=== PATIENT | female | born 1975 | race African-American/Black ===

== ENCOUNTER 2021-03-14 14:22 | Inpatient (IN) ==
[2021-03-14] MEDS ORDERED: methylPREDNISolone SOD SUC 125 MG/2 ML VIAL IV STA (14:53)
[2021-03-14] MEDS ORDERED: ALBUTEROL NEB SOLN 5 MG/ML 20 ML/BOTTLE CONT NEB STA (14:53)
[2021-03-14 16:43] LABS: Alanine Aminotransferase 19 U/L (13-56); Albumin 3.7 G/DL (3.4-5.0); Alkaline Phosphatase 110 U/L (45-117); Aspartate Amino Transferase 16 U/L (0-37); Bilirubin,Total < 0.39 MG/DL (0.20-1.00); Blood Urea Nitrogen 5 MG/DL (7-18); Calcium 8.8 MG/DL (8.5-10.1); Carbon Dioxide 26 MMOL/L (21-32); Estimated Glom Filtration Rate 135 ML/MIN; Ferritin 39.5 ng/mL (8-252); Glucose 103 MG/DL (74-106); Osmolality,Calculated 275.4 MOS/KG (273-304); Potassium 3.8 MMOL/L (3.5-5.1); Sodium 140 MMOL/L (136-145)
[2021-03-14 16:47] LABS: PT Patient Result 10.9 SECS (10.5-12.0)
[2021-03-14 16:48] LABS: Basophils % 0.3 % (0.0-0.8); Eosinophils # 0.2 10*3/uL (0.0-0.87); Eosinophils % 1.4 % (0.00-10.9); Hematocrit 46.2 VOL% (35.7-47.0); Hemoglobin 14.5 GM/DL (12.0-16.0); Immature Granulocytes % 0.4 %; Immature Granulocytes Absolute 0.06 #; Lymphocytes # 2.5 10*3/uL (1.4-4.0); Lymphocytes % 18.1 % (21.3-54.2); Mean Corpuscular HGB Conc 31.4 GM/DL (32-36); Mean Corpuscular Volume 90.6 FL (87-102); Mean Platelet Volume 9.6 FL (9.6-12.0); Monocytes % 5.6 % (1.7-12.7); Neutrophils % 74.2 % (38.7-73.9); Platelet Count 307 T/CUMM (130-400); Red Cell Distribution Width 13.5 % (9.3-17.3); White Blood Count 13.6 T/CUMM (4-12)
[2021-03-14] MEDS ORDERED: DEXTROSE 50% 25 GM/50 ML VIAL IV PRN ×2 (17:17→18:04)
[2021-03-14] MEDS ORDERED: GLUCAGON 1 MG VIAL IM PRN ×2 (17:17→18:04)
[2021-03-14] MEDS ORDERED: LEVOFLOXACIN INJ 750 MG/150 ML PREMIX IV STA (17:20)
[2021-03-14] MEDS ORDERED: ALBUTEROL/IPRATROPIUM 3 ML NEB RESP TX STA (17:20)
[2021-03-14] MEDS ORDERED: ONDANSETRON 4 MG/2 ML VIAL IV PRN (18:04)
[2021-03-14] MEDS ORDERED: NICOTINE 21 MG/24 HR PATCH TRANSDERM PRN (18:04)
[2021-03-14] MEDS: ENOXAPARIN 40 MG/0.4 ML SYRINGE SUBCUT SCH (18:30)
[2021-03-14] MEDS: ALBUTEROL/IPRATROPIUM 3 ML NEB RESP TX SCH (19:40)
[2021-03-14] MEDS: methylPREDNISolone SOD SUC 40 MG/1 ML VIAL IV SCH (21:26)
[2021-03-14] MEDS: INSULIN LISPRO 100 UNIT/ML SUBCUT SCH (22:36)
[2021-03-15] MEDS: ALBUTEROL/IPRATROPIUM 3 ML NEB RESP TX SCH ×4 (00:33→19:30)
[2021-03-15] MEDS: methylPREDNISolone SOD SUC 40 MG/1 ML VIAL IV SCH ×3 (04:58→21:51)
[2021-03-15 06:34] LABS: Basophils % 0.1 % (0.0-0.8); Hematocrit 41.8 VOL% (35.7-47.0); Hemoglobin 13.3 GM/DL (12.0-16.0); Immature Granulocytes % 0.7 %; Immature Granulocytes Absolute 0.11 #; Mean Corpuscular HGB Conc 31.8 GM/DL (32-36); Mean Corpuscular Volume 89.9 FL (87-102); Mean Platelet Volume 9.8 FL (9.6-12.0); Monocytes % 1.5 % (1.7-12.7); Neutrophils % 91.7 % (38.7-73.9); Platelet Count 335 T/CUMM (130-400); Red Blood Count 4.65 MC/CUMM (3.8-5.5); Red Cell Distribution Width 13.4 % (9.3-17.3); White Blood Count 16.2 T/CUMM (4-12)
[2021-03-15 06:56] LABS: Lymphocytes 11 % (20-55); Platelet Estimate Adequate; Segmented Neutrophils 87 % (50-85); Total Cells Counted 100
[2021-03-15 07:15] LABS: Calcium 9.1 MG/DL (8.5-10.1); Osmolality,Calculated 283.8 MOS/KG (273-304); Potassium 4.2 MMOL/L (3.5-5.1); Risk Ratio 4.34; Thyroid Stimulating Hormone 0.727 uIU/ml (0.358-3.74); VLDL Cholesterol 22.4 MG/DL
[2021-03-15] MEDS: INSULIN LISPRO 100 UNIT/ML SUBCUT SCH ×4 (08:38→21:50)
[2021-03-15] MEDS: SODIUM CHLORIDE 0.9% 1,000 ML IV SCH (10:33)
[2021-03-15] MEDS: AZITHROMYCIN INJ 500 MG in SODIUM CHLORIDE 0.9% 250 ML IV SCH (10:34)
[2021-03-15] MEDS: ACETAMINOPHEN 325 MG TABLET PO PRN (16:18)
[2021-03-15] MEDS: ENOXAPARIN 40 MG/0.4 ML SYRINGE SUBCUT SCH (21:51)
[2021-03-16] MEDS: ALBUTEROL/IPRATROPIUM 3 ML NEB RESP TX SCH ×4 (00:59→20:29)
[2021-03-16] MEDS ORDERED: EPINEPHrine 1 MG/ML VIAL ONE (01:15)
[2021-03-16 05:17] LABS: Basophils % 0.1 % (0.0-0.8); Hematocrit 40.4 VOL% (35.7-47.0); Hemoglobin 12.7 GM/DL (12.0-16.0); Immature Granulocytes % 2.4 %; Immature Granulocytes Absolute 0.71 #; Lymphocytes # 1.7 10*3/uL (1.4-4.0); Lymphocytes % 5.6 % (21.3-54.2); Mean Corpuscular HGB Conc 31.4 GM/DL (32-36); Mean Corpuscular Volume 90.4 FL (87-102); Mean Platelet Volume 9.5 FL (9.6-12.0); Monocytes % 2.7 % (1.7-12.7); Neutrophils % 89.2 % (38.7-73.9); Platelet Count 333 T/CUMM (130-400); Red Blood Count 4.47 MC/CUMM (3.8-5.5); Red Cell Distribution Width 13.7 % (9.3-17.3); White Blood Count 29.5 T/CUMM (4-12)
[2021-03-16] MEDS: methylPREDNISolone SOD SUC 40 MG/1 ML VIAL IV SCH ×3 (05:19→21:22)
[2021-03-16 05:40] LABS: Calcium 8.8 MG/DL (8.5-10.1); Osmolality,Calculated 293.4 MOS/KG (273-304); Potassium 4.4 MMOL/L (3.5-5.1)
[2021-03-16 05:42] LABS: Ferritin 46.2 ng/mL (8-252)
[2021-03-16 05:56] LABS: Hypochromasia 1+; Lymphocytes 11 % (20-55); Microcytosis 1+; Polychromasia Slight; Segmented Neutrophils 87 % (50-85); Total Cells Counted 100
[2021-03-16 05:57] LABS: Platelet Estimate Normal
[2021-03-16] MEDS: INSULIN LISPRO 100 UNIT/ML SUBCUT SCH ×4 (08:04→21:30)
[2021-03-16] MEDS: AZITHROMYCIN INJ 500 MG in SODIUM CHLORIDE 0.9% 250 ML IV SCH (08:05)
[2021-03-16] MEDS: hydrALAZINE 20 MG/1 ML VIAL IV PRN ×2 (10:06→21:22)
[2021-03-16] MEDS: metFORMIN 500 MG TABLET PO SCH ×2 (17:40→21:21)
[2021-03-16] MEDS: ROSUVASTATIN 10 MG TABLET PO SCH (17:40)
[2021-03-16] MEDS: LOSARTAN 50 MG TABLET PO SCH (17:40)
[2021-03-16] MEDS: BENZONATATE 100 MG CAPSULE PO PRN (19:43)
[2021-03-16] MEDS: ENOXAPARIN 40 MG/0.4 ML SYRINGE SUBCUT SCH (21:23)
[2021-03-16] MEDS: SODIUM CHLORIDE 0.9% 1,000 ML IV SCH ×2 (22:50→22:51)
[2021-03-17] MEDS: SODIUM CHLORIDE 0.9% 1,000 ML IV SCH ×2 (02:53→20:13)
[2021-03-17] MEDS: methylPREDNISolone SOD SUC 40 MG/1 ML VIAL IV SCH ×3 (04:56→21:53)
[2021-03-17] MEDS: ALBUTEROL/IPRATROPIUM 3 ML NEB RESP TX SCH ×4 (04:57→19:10)
[2021-03-17] MEDS: AZITHROMYCIN INJ 500 MG in SODIUM CHLORIDE 0.9% 250 ML IV SCH (09:15)
[2021-03-17] MEDS: BENZONATATE 100 MG CAPSULE PO PRN (09:16)
[2021-03-17] MEDS: ROSUVASTATIN 10 MG TABLET PO SCH (09:16)
[2021-03-17] MEDS: LOSARTAN 50 MG TABLET PO SCH (09:16)
[2021-03-17] MEDS: metFORMIN 500 MG TABLET PO SCH ×2 (09:16→21:52)
[2021-03-17] MEDS: INSULIN LISPRO 100 UNIT/ML SUBCUT SCH ×4 (09:16→21:53)
[2021-03-17 09:23] LABS: Basophils # 0.1 10*3/uL (0.0-0.2); Basophils % 0.2 % (0.0-0.8); Hematocrit 41.6 VOL% (35.7-47.0); Hemoglobin 13.1 GM/DL (12.0-16.0); Immature Granulocytes % 4.9 %; Immature Granulocytes Absolute 1.29 #; Lymphocytes # 2.1 10*3/uL (1.4-4.0); Lymphocytes % 7.8 % (21.3-54.2); Mean Corpuscular HGB Conc 31.5 GM/DL (32-36); Mean Corpuscular Volume 89.8 FL (87-102); Mean Platelet Volume 9.5 FL (9.6-12.0); Monocytes % 1.9 % (1.7-12.7); Neutrophils % 85.2 % (38.7-73.9); Platelet Count 307 T/CUMM (130-400); Red Blood Count 4.63 MC/CUMM (3.8-5.5); Red Cell Distribution Width 13.7 % (9.3-17.3); White Blood Count 26.4 T/CUMM (4-12)
[2021-03-17 09:54] LABS: Band Neutrophils 1 % (0-10); Lymphocytes 5 % (20-55); Segmented Neutrophils 91 % (50-85); Total Cells Counted 100
[2021-03-17 09:55] LABS: Hypochromasia 1+; Microcytosis 1+; Platelet Estimate Normal
[2021-03-17] MEDS: hydrALAZINE 20 MG/1 ML VIAL IV PRN ×2 (11:40→17:22)
[2021-03-17] MEDS: ACETAMINOPHEN 325 MG TABLET PO PRN (19:12)
[2021-03-17] MEDS: ENOXAPARIN 40 MG/0.4 ML SYRINGE SUBCUT SCH (21:53)
[2021-03-18] MEDS: SODIUM CHLORIDE 0.9% 1,000 ML IV SCH (00:20)
[2021-03-18] MEDS: ALBUTEROL/IPRATROPIUM 3 ML NEB RESP TX SCH ×2 (02:40→07:30)
[2021-03-18] MEDS: methylPREDNISolone SOD SUC 40 MG/1 ML VIAL IV SCH (05:01)
[2021-03-18] MEDS: hydrALAZINE 20 MG/1 ML VIAL IV PRN ×2 (05:46→11:11)
[2021-03-18] MEDS ORDERED: predniSONE 20 MG TABLET PO SCH (09:00)
[2021-03-18] MEDS: LOSARTAN 50 MG TABLET PO SCH (09:41)
[2021-03-18] MEDS: metFORMIN 500 MG TABLET PO SCH (09:41)
[2021-03-18] MEDS: ROSUVASTATIN 10 MG TABLET PO SCH (09:41)
[2021-03-18] MEDS: INSULIN LISPRO 100 UNIT/ML SUBCUT SCH ×2 (09:42→12:26)
[2021-03-18] MEDS: AZITHROMYCIN INJ 500 MG in SODIUM CHLORIDE 0.9% 250 ML IV SCH (09:45)
[2021-03-18 11:50] VITALS: BP 180/97
== END 2021-03-18 12:45 | disposition designated cancer center or children's hospital (05) | DRG 191 ==
LOC: N.EDINP 14:22 → N.ED 14:22 → SUATTDRO 18:04 → N.2E 20:09 → SUATTDRO 03-16 10:44 → N.3E 03-16 18:28
PROVIDERS: ADMIT Hospitalist; ATTEND Internal Medicine